=== PATIENT | male | born 1970 | race Caucasian/White ===

== ENCOUNTER 2022-02-11 17:45 | Emergency (ER) | payer MEDICAID ==
[2022-02-11] MEDS ORDERED: Aspirin 81 MG Tab.Chew ONE (18:12)
[2022-02-11] MEDS ORDERED: Aspirin 81 MG Tab.Chew PO SCH (21:00)
== END 2022-02-11 20:40 | disposition home or self-care (01) ==
LOC: FB.ED 17:45
DX: I20.9 Angina pectoris, unspecified (principal); Z88.2 Allergy status to sulfonamides; Z88.1 Allergy status to other antibiotic agents; Z91.018 Allergy to other foods
CPT/HCPCS: 36415; 71045; 80053; 83880; 84484; 85025; 93005; 93010; 99282; 99285-25; A9270-GY

== ENCOUNTER 2024-01-08 15:03 | Emergency (ER) | payer MEDICAID ==
[2024-01-08] MEDS: Sodium Chloride 0.9% 10 ML Syringe FLUSH PRN (15:03)
[2024-01-08] MEDS ORDERED: Acetaminophen/oxyCODONE 325-5 MG Tab PO ONE (15:04)
[2024-01-08 15:23] LABS: BASOPHILS ABSOLUTE AUTO 0.1 x10-3/uL (0.0-0.3); BASOPHILS PERCENT AUTO 0.9 % (0.3-3.8); EOSINOPHILS ABSOLUTE AUTO 0.4 x10-3/uL (0.0-0.6); HEMATOCRIT 48.5 % (38.3-50.1); HEMOGLOBIN 16.6 g/dL (12.9-17.7); LYMPHOCYTES ABSOLUTE AUTO 1.7 x10-3/uL (0.5-4.5); MEAN CORPUSCULAR HGB CONC 34.2 g/dL (28.7-35.3); MEAN CORPUSCULAR VOLUME 96.6 fL (80.8-98.7); MEAN PLATELET VOLUME 7.8 fL (6.7-11.0); MONOCYTES ABSOLUTE AUTO 0.6 x10-3/uL (0.0-1.2); MONOCYTES PERCENT AUTO 6.9 % (5.5-15.2); NEUTROPHILS ABSOLUTE AUTO 5.7 x10-3/uL (1.7-6.9); NEUTROPHILS PERCENT AUTO 67.2 % (40.3-71.8); PLATELET COUNT,PLT 240 x10(3)uL (117-477); RED BLOOD CELL COUNT 5.02 x10(6)uL (3.90-5.90); RED CELL DISTRIBUTION WIDTH 13.4 % (12.4-15.0); WHITE BLOOD CELL COUNT,WBC 8.5 x10-3/uL (3.2-10.1)
[2024-01-08 15:27] LABS: BLOOD UREA NITROGEN,BUN 16 mg/dL (7-18); BUN/CREATININE RATIO 11.4 (9-20); CALCIUM 9.1 mg/dL (8.6-10.2); CARBON DIOXIDE,CO2 22 mmol/L (21-32); CHLORIDE,CL 102 mmol/L (100-110); CREATININE 1.4 mg/dL (0.70-1.30); EST CRCL DRUG DOSING (CG) 68.96 mL/min; ESTIMATED GFR 60 mL/min (>60); GLUCOSE RANDOM 123 mg/dL (80-116); POTASSIUM,K 3.7 mmol/L (3.5-5.3); SODIUM,NA 137 mmol/L (135-145)
[2024-01-08 15:33] LABS: ALANINE AMINOTRANSFERASE,ALT 28 U/L (12-36); ALBUMIN 3.6 g/dL (3.5-5.2); ASPARTATE AMNIOTRANSFERASE,AST 28 IU/L (5-25); BILIRUBIN TOTAL 0.8 mg/dL (0.1-1.3); PROTEIN TOTAL,TP 7.3 g/dL (6.0-8.0)
[2024-01-08] MEDS: Ketorolac 30 MG/ML SDV IVPUSH ONE (15:35)
[2024-01-08] MEDS: Sodium Chloride 0.9% 1,000 ML IV SCH (15:36)
[2024-01-08] MEDS: tiZANidine 4 MG Tab PO STA (15:36)
[2024-01-08] MEDS: Ondansetron 4 MG/2 ML SDV IVPUSH ONE (15:37)
[2024-01-08] MEDS: Morphine 4 MG/ML VIAL IVPUSH ONE (15:39)
[2024-01-08 15:43] LABS: ALKALINE PHOSPHATASE 76 IU/L (56-112)
[2024-01-08 15:46] LABS: TROPONIN I 6.2 pg/mL (4.0-60.3)
[2024-01-08] MEDS: Iopamidol 755 Mg/ML 100 ML Bottle IV SCH (16:17)
[2024-01-08] MEDS: Acetaminophen/oxyCODONE 325-5 MG Tab PO STA (16:57)
[2024-01-08] MEDS: Ciprofloxacin 500 MG Tab PO ONE (18:35)
[2024-01-08] MEDS: metroNIDAZOLE 500 MG Tab PO ONE (18:35)
[2024-01-08 19:17] LABS: BILIRUBIN,URINE NEGATIVE (NEGATIVE); GLUCOSE,URINE NORMAL (NORMAL); KETONES,URINE 15 mg/dL (NEGATIVE); LEUKOCYTE ESTERASE,URINE NEGATIVE (NEGATIVE); NITRITE,URINE NEGATIVE (NEGATIVE); OCCULT BLOOD,URINE MODERATE (NEGATIVE); PROTEIN,URINE 30 mg/dL (NEGATIVE); UROBILINOGEN,URINE NORMAL (NEGATIVE)
[2024-01-08 19:18] LABS: APPEARANCE,URINE CLEAR (CLEAR); BACTERIA,URINE RARE (NS); COLOR,URINE YELLOW (YELLOW); RBC,URINE 0-5 (0-5); SQUAMOUS EPITHELIAL CELLS,UR FEW (NS,R,O); WBC,URINE 0-5 (0-5)
== END 2024-01-08 18:40 | disposition home or self-care (01) ==
LOC: MERGE 15:03 → EDBD 15:03 → FB.ED 15:03
DX: K57.92 Diverticulitis of intestine, part unspecified, without perforation or abscess without bleeding (principal); M51.16 Intervertebral disc disorders with radiculopathy, lumbar region; K59.00 Constipation, unspecified; I25.10 Atherosclerotic heart disease of native coronary artery without angina pectoris; F17.210 Nicotine dependence, cigarettes, uncomplicated; Z88.2 Allergy status to sulfonamides; Z91.018 Allergy to other foods; Z88.8 Allergy status to other drugs, medicaments and biological substances; Z79.899 Other long term (current) drug therapy
CPT/HCPCS: 36415; 51702; 72131; 74177; 80053; 81001; 82150; 83690; 84484; 85025; 93005; 96361; 96374; 96375; 99284; A9270; J1885; J2270; J2405; J3490; J7030; Q9967; 93010

== ENCOUNTER 2024-01-10 15:13 | Inpatient (IN) | payer MEDICAID ==
[2024-01-10] MEDS: Sodium Chloride 0.9% 10 ML Syringe FLUSH PRN (15:25)
[2024-01-10] MEDS ORDERED: Naloxone 0.4 MG/ML SDV IVPUSH PRN (15:37)
[2024-01-10 15:41] LABS: BASOPHILS ABSOLUTE AUTO 0.1 x10-3/uL (0.0-0.3); BASOPHILS PERCENT AUTO 0.6 % (0.3-3.8); EOSINOPHILS ABSOLUTE AUTO 0.5 x10-3/uL (0.0-0.6); EOSINOPHILS PERCENT AUTO 4.3 % (0.1-6.8); HEMOGLOBIN 17.1 g/dL (12.9-17.7); LYMPHOCYTES ABSOLUTE AUTO 1.9 x10-3/uL (0.5-4.5); LYMPHOCYTES PERCENT AUTO 17.5 % (15.8-45.3); MEAN CORPUSCULAR HEMOGLOBIN 33.1 pg (27.0-33.3); MEAN CORPUSCULAR HGB CONC 34.2 g/dL (28.7-35.3); MEAN CORPUSCULAR VOLUME 96.6 fL (80.8-98.7); MEAN PLATELET VOLUME 7.9 fL (6.7-11.0); MONOCYTES PERCENT AUTO 8.7 % (5.5-15.2); NEUTROPHILS ABSOLUTE AUTO 7.6 x10-3/uL (1.7-6.9); NEUTROPHILS PERCENT AUTO 68.9 % (40.3-71.8); PLATELET COUNT,PLT 250 x10(3)uL (117-477); RED BLOOD CELL COUNT 5.18 x10(6)uL (3.90-5.90); RED CELL DISTRIBUTION WIDTH 13.6 % (12.4-15.0)
[2024-01-10 15:45] LABS: BLOOD UREA NITROGEN,BUN 9 mg/dL (7-18); BUN/CREATININE RATIO 6.4 (9-20); CALCIUM 8.7 mg/dL (8.6-10.2); CARBON DIOXIDE,CO2 26 mmol/L (21-32); CHLORIDE,CL 101 mmol/L (100-110); CREATININE 1.4 mg/dL (0.70-1.30); ESTIMATED GFR 60 mL/min (>60); GLUCOSE RANDOM 121 mg/dL (80-116); POTASSIUM,K 3.4 mmol/L (3.5-5.3); SODIUM,NA 139 mmol/L (135-145)
[2024-01-10 15:51] LABS: ALANINE AMINOTRANSFERASE,ALT 26 U/L (12-36); ALBUMIN 3.8 g/dL (3.5-5.2); ALKALINE PHOSPHATASE 77 IU/L (56-112); ASPARTATE AMNIOTRANSFERASE,AST 32 IU/L (5-25); BILIRUBIN TOTAL 0.6 mg/dL (0.1-1.3); PROTEIN TOTAL,TP 7.5 g/dL (6.0-8.0)
[2024-01-10] MEDS: HYDROmorphone 2 MG/ML SDV IVPUSH ONE (15:52)
[2024-01-10] MEDS: Ketorolac 30 MG/ML SDV IVPUSH ONE (15:53)
[2024-01-10] MEDS ORDERED: Ondansetron 4 MG/2 ML SDV IV PRN (17:57)
[2024-01-10] MEDS: Ciprofloxacin in D5W 400 MG in Premix Bag 1 BAG IV SCH (18:27)
[2024-01-10] MEDS: Acetaminophen/HYDROcodone 325-5 MG Tab PO PRN (19:13)
[2024-01-10] MEDS: Morphine 2 MG/ML SYRINGE IVPUSH PRN (19:14)
[2024-01-10] MEDS: metroNIDAZOLE/Normal Saline 500 MG in Premix Bag 1 BAG IV SCH (20:31)
[2024-01-10] MEDS: Potassium Chloride 20 MEQ Tab.ER PO SCH (20:44)
[2024-01-10] MEDS: Enoxaparin 40 MG/0.4 ML Syringe SUBCUT SCH (20:44)
[2024-01-10] MEDS: HYDROmorphone 2 MG/ML SDV IVPUSH PRN (21:07)
[2024-01-11] MEDS: Cyclobenzaprine 10 MG Tab PO PRN (00:02)
[2024-01-11] MEDS: Gabapentin 600 MG Tab PO SCH (00:02)
[2024-01-11] MEDS: Zolpidem 10 MG Tab PO PRN (00:05)
[2024-01-11 06:53] LABS: BASOPHILS PERCENT AUTO 0.5 % (0.3-3.8); EOSINOPHILS ABSOLUTE AUTO 0.6 x10-3/uL (0.0-0.6); EOSINOPHILS PERCENT AUTO 6.6 % (0.1-6.8); HEMATOCRIT 43.3 % (38.3-50.1); HEMOGLOBIN 15.1 g/dL (12.9-17.7); LYMPHOCYTES ABSOLUTE AUTO 2.8 x10-3/uL (0.5-4.5); LYMPHOCYTES PERCENT AUTO 31.7 % (15.8-45.3); MEAN CORPUSCULAR HEMOGLOBIN 33.5 pg (27.0-33.3); MEAN CORPUSCULAR HGB CONC 34.8 g/dL (28.7-35.3); MEAN CORPUSCULAR VOLUME 96.3 fL (80.8-98.7); MEAN PLATELET VOLUME 7.9 fL (6.7-11.0); MONOCYTES ABSOLUTE AUTO 0.9 x10-3/uL (0.0-1.2); MONOCYTES PERCENT AUTO 9.7 % (5.5-15.2); NEUTROPHILS ABSOLUTE AUTO 4.5 x10-3/uL (1.7-6.9); NEUTROPHILS PERCENT AUTO 51.5 % (40.3-71.8); PLATELET COUNT,PLT 213 x10(3)uL (117-477); RED BLOOD CELL COUNT 4.49 x10(6)uL (3.90-5.90); RED CELL DISTRIBUTION WIDTH 13.6 % (12.4-15.0); WHITE BLOOD CELL COUNT,WBC 8.8 x10-3/uL (3.2-10.1)
[2024-01-11 07:03] LABS: BLOOD UREA NITROGEN,BUN 9 mg/dL (7-18); BUN/CREATININE RATIO 6.9 (9-20); CALCIUM 7.6 mg/dL (8.6-10.2); CARBON DIOXIDE,CO2 29 mmol/L (21-32); CHLORIDE,CL 105 mmol/L (100-110); CREATININE 1.3 mg/dL (0.70-1.30); EST CRCL DRUG DOSING (CG) 74.27 mL/min; ESTIMATED GFR 66 mL/min (>60); GLUCOSE RANDOM 98 mg/dL (80-116); POTASSIUM,K 3.2 mmol/L (3.5-5.3); SODIUM,NA 140 mmol/L (135-145)
[2024-01-11] MEDS ORDERED: ESZOPICLONE 2 MG PO PRN (07:51)
[2024-01-11] MEDS ORDERED: Cyclobenzaprine 10 MG Tab PO PRN (07:51)
[2024-01-11] MEDS: Meloxicam 7.5 MG Tab PO SCH (08:45)
[2024-01-11] MEDS: Pantoprazole 40 MG Tab.CR PO SCH (08:45)
[2024-01-11] MEDS: amLODIPine 5 MG Tab PO SCH (08:45)
[2024-01-11] MEDS: Allopurinol 100 MG Tab PO SCH (08:45)
[2024-01-11] MEDS: Fluticasone NASAL Spray 16 GM Bottle NAS PRN (08:46)
[2024-01-11] MEDS ORDERED: Gabapentin 600 MG Tab PO SCH (09:00)
[2024-01-11] MEDS: Sotalol 80 MG Tab PO SCH (09:21)
[2024-01-11] MEDS: DULoxetine 30 MG Cap PO SCH (09:22)
[2024-01-11] MEDS: metroNIDAZOLE 500 MG Tab PO SCH (09:23)
[2024-01-11] MEDS: Ciprofloxacin 500 MG Tab PO SCH (09:23)
[2024-01-11] MEDS: Midodrine 5 MG Tab PO SCH (09:24)
[2024-01-11] MEDS: NS + KCl 20mEq/L 1,000 ML IV SCH (09:25)
[2024-01-11] MEDS: methylPREDNISolone Sodium Succinate 125 MG/2 ML SDV IVPUSH SCH (09:30)
[2024-01-11] MEDS: Baclofen 10 MG Tab PO ONE (14:12)
[2024-01-11] MEDS: Acetaminophen/HYDROcodone 325-7.5 MG Tab PO SCH (16:34)
[2024-01-11] MEDS: Ibuprofen 800 MG Tab PO SCH (16:38)
[2024-01-11] MEDS: Cyclobenzaprine 10 MG Tab PO SCH (20:28)
[2024-01-11] MEDS: Simvastatin 20 MG Tab PO SCH (20:29)
[2024-01-12 06:41] LABS: BLOOD UREA NITROGEN,BUN 14 mg/dL (7-18); BUN/CREATININE RATIO 11.7 (9-20); CALCIUM 8.3 mg/dL (8.6-10.2); CARBON DIOXIDE,CO2 25 mmol/L (21-32); CHLORIDE,CL 104 mmol/L (100-110); CREATININE 1.2 mg/dL (0.70-1.30); EST CRCL DRUG DOSING (CG) 80.45 mL/min; ESTIMATED GFR 72 mL/min (>60); GLUCOSE RANDOM 154 mg/dL (80-116); POTASSIUM,K 4.1 mmol/L (3.5-5.3); SODIUM,NA 137 mmol/L (135-145)
== END 2024-01-12 09:50 | disposition home or self-care (01) | DRG 552 ==
LOC: FB.ED 15:13 → FB.MS 18:30 → OBSVTOIN 01-11 09:00
PROVIDERS: ADMIT Emergency Medicine; ATTEND Family Medicine
DX: M51.36 Other intervertebral disc degeneration, lumbar region (principal); N17.9 Acute kidney failure, unspecified; K57.92 Diverticulitis of intestine, part unspecified, without perforation or abscess without bleeding; M51.86 Other intervertebral disc disorders, lumbar region; M51.26 Other intervertebral disc displacement, lumbar region; Z51.5 Encounter for palliative care; N18.9 Chronic kidney disease, unspecified; I12.9 Hypertensive chronic kidney disease with stage 1 through stage 4 chronic kidney disease, or unspecified chronic kidney disease; E87.6 Hypokalemia; I25.10 Atherosclerotic heart disease of native coronary artery without angina pectoris; M19.90 Unspecified osteoarthritis, unspecified site; Z91.048 Other nonmedicinal substance allergy status; F32.A Depression, unspecified; M10.9 Gout, unspecified; F17.210 Nicotine dependence, cigarettes, uncomplicated; H91.90 Unspecified hearing loss, unspecified ear; K59.03 Drug induced constipation; Z88.2 Allergy status to sulfonamides; Z88.1 Allergy status to other antibiotic agents; Z88.8 Allergy status to other drugs, medicaments and biological substances; Z79.899 Other long term (current) drug therapy; Z95.0 Presence of cardiac pacemaker; Z87.440 Personal history of urinary (tract) infections; Z95.5 Presence of coronary angioplasty implant and graft; Z85.51 Personal history of malignant neoplasm of bladder
CPT/HCPCS: 36415 ×2; 72192; 73552; 73700; 80048; 80053; 83605; 85025 ×2; J0744; J1170 ×4; J1650; J1836 ×2; J1885; J2270 ×2; J3490 ×8; 99222; 99238; 99285; A9270-GY; J2930; J3480

== ENCOUNTER 2024-08-15 15:34 | Emergency (ER) | payer MEDICAID ==
[2024-08-15] MEDS: Aspirin 81 MG Tab.Chew PO ONE (16:01)
[2024-08-15] MEDS: Nitroglycerin 0.4 MG Tab.SL SL ONE ×2 (16:02→17:03)
[2024-08-15 16:12] LABS: BASOPHILS ABSOLUTE AUTO 0.1 x10-3/uL (0.0-0.3); EOSINOPHILS ABSOLUTE AUTO 0.4 x10-3/uL (0.0-0.6); EOSINOPHILS PERCENT AUTO 5.2 % (0.1-6.8); HEMATOCRIT 46.5 % (38.3-50.1); LYMPHOCYTES ABSOLUTE AUTO 2.5 x10-3/uL (0.5-4.5); LYMPHOCYTES PERCENT AUTO 32.9 % (15.8-45.3); MEAN CORPUSCULAR HEMOGLOBIN 32.9 pg (27.0-33.3); MEAN CORPUSCULAR HGB CONC 34.5 g/dL (28.7-35.3); MEAN CORPUSCULAR VOLUME 95.2 fL (80.8-98.7); MEAN PLATELET VOLUME 8.8 fL (6.7-11.0); MONOCYTES ABSOLUTE AUTO 0.6 x10-3/uL (0.0-1.2); MONOCYTES PERCENT AUTO 8.4 % (5.5-15.2); NEUTROPHILS PERCENT AUTO 52.5 % (40.3-71.8); PLATELET COUNT,PLT 205 x10(3)uL (117-477); RED BLOOD CELL COUNT 4.88 x10(6)uL (3.90-5.90); RED CELL DISTRIBUTION WIDTH 13.4 % (12.4-15.0); WHITE BLOOD CELL COUNT,WBC 7.7 x10-3/uL (3.2-10.1)
[2024-08-15 16:16] LABS: BLOOD UREA NITROGEN,BUN 9 mg/dL (7-18); CALCIUM 8.4 mg/dL (8.6-10.2); CARBON DIOXIDE,CO2 27 mmol/L (21-32); CHLORIDE,CL 104 mmol/L (100-110); ESTIMATED GFR 89 mL/min (>60); GLUCOSE RANDOM 122 mg/dL (80-116); POTASSIUM,K 3.3 mmol/L (3.5-5.3); SODIUM,NA 141 mmol/L (135-145)
[2024-08-15 16:21] LABS: A/G RATIO 1.1; ALANINE AMINOTRANSFERASE,ALT 22 U/L (12-36); ALBUMIN 3.4 g/dL (3.5-5.2); ALKALINE PHOSPHATASE 78 IU/L (56-112); ASPARTATE AMNIOTRANSFERASE,AST 28 IU/L (5-25); BILIRUBIN TOTAL 0.6 mg/dL (0.1-1.3); PROTEIN TOTAL,TP 6.6 g/dL (6.0-8.0); PTT,PARTIAL THROMBOPLSTIN TIME 24.7 SECONDS (24.4-33.2)
[2024-08-15 16:24] LABS: INR 0.96 (1.00-1.24)
[2024-08-15 16:28] LABS: TROPONIN I 8.1 pg/mL (4.0-60.3)
[2024-08-15] MEDS: Ondansetron 4 MG/2 ML SDV IVPUSH ONE (17:29)
[2024-08-15] MEDS: Ketorolac 30 MG/ML SDV IVPUSH ONE (17:30)
== END 2024-08-15 17:43 | disposition home or self-care (01) ==
LOC: FB.ED 15:34
DX: R07.89 Other chest pain (principal); I25.10 Atherosclerotic heart disease of native coronary artery without angina pectoris; Z95.0 Presence of cardiac pacemaker; Z95.5 Presence of coronary angioplasty implant and graft; Z79.899 Other long term (current) drug therapy; Z88.1 Allergy status to other antibiotic agents; Z88.2 Allergy status to sulfonamides; Z91.048 Other nonmedicinal substance allergy status
CPT/HCPCS: 36415; 71045; 80053; 83880; 84484; 85025; 85610; 85730; 93005; 96374; 96375; 99285-25; A9270-GY; J1885; J2405